=== PATIENT | male | born 1960 | race Caucasian/White ===

== ENCOUNTER 2022-01-25 10:00 | Outpatient (CLI) | payer BC, SELFPAY ==
[2022-01-25 13:48] LABS: Albumin* 4.6 g/dL (3.3-5.0)
[2022-01-25 13:49] LABS: Chloride* 105 mmol/L (96-114); Potassium* 4.6 mmol/L (3.6-5.1); Sodium* 139 mmol/L (135-149)
[2022-01-25 13:51] LABS: Alkaline Phosphatase* 90 U/L (40-150); Aspartate Amino Transferase* 30 U/L (12-35); Bilirubin Total* 1.2 mg/dL (0.1-1.5); Blood Urea Nitrogen* 20 mg/dL (7-30); Carbon Dioxide* 26 mmol/L (20-32); Cholesterol* 150 mg/dL (90-199); Estimated Glomerular Filt Rate 85 ml/min; Total Protein* 7.2 g/dL (6.0-8.3)
[2022-01-25 13:52] LABS: Alanine Aminotransferase* 35 U/L (4-50); Calcium* 9.7 mg/dL (8.4-10.6); Glucose* 100 mg/dL (60-115); HDL Cholesterol* 29 mg/dL (>=40); LDL Cholesterol Calculated 96 mg/dL (<100); Triglycerides* 126 mg/dL (40-149)
[2022-01-25 14:06] LABS: Creatinine Urine 149.9 mg/dL
[2022-01-25 14:11] LABS: Microalbumin Creatinine Ratio 0 mg/g (0-30); Microalbumin Urine 1 mg/dL
== END 2022-01-25 10:01 | disposition home or self-care (01) ==
PROVIDERS: PCP Physician Assistant Medical; Visit Provider Family Medicine
DX: E78.5 Hyperlipidemia, unspecified (principal); R03.0 Elevated blood-pressure reading, without diagnosis of hypertension; R53.83 Other fatigue
CPT/HCPCS: 80053; 80061; 82043; 82570; 84443

== ENCOUNTER 2022-01-26 08:18 | Day surgery (SDC) | payer BC, SELFPAY ==
[2022-01-26] VITALS (14 sets, daily range): BP systolic 79–159; BP diastolic 51–103; PULSE 71–96; RESP 16–18; TEMP 36.1–36.6; O2SAT 92–98; BMI 30.7
[2022-01-26] MEDS: LACTATED RINGERS 1000 ML 1,000 ML 100 ML IV (08:49)
[2022-01-26] MEDS: CEFAZOLIN 2 GM INJ IVP (09:45)
[2022-01-26] MEDS: BUPIVACAINE 0.25% 30 ML INJECTION (10:20)
--- NOTE | 2022-01-26 10:38 | W.ANESCHARGE ---
Anesthesia Charges Start Date/Time Anesthesia Start Date: 01/26/22 Anesthesia Start Time: 09:38 Stop Date/Time Anesthesia Stop Date: 01/26/22 Anesthesia Stop Time: 10:33 Summary Emergency: No
--- NOTE | 2022-01-26 10:47 | P.ORPRC_ITS ---
Procedure Note Date of procedure: 01/26/22 Procedure: SURGEON: Derek Carias MD ENVIRONMENTAL RESEARCH PROJECT MANAGER: CATARINA Maurice PREOPERATIVE DIAGNOSIS: Left knee medial meniscus tear, inflammation within the ACL origin, insertion and midportion of the ligament POSTOPERATIVE DIAGNOSIS: Left knee medial meniscus tear, inflammation within the ACL origin, insertion and midportion of the ligament NAME OF OPERATION: Left knee arthroscopic partial medial meniscectomy ANESTHESIA: Spinal ESTIMATED BLOOD LOSS: 0 mL COMPLICATIONS: None SPECIMENS: None DRAINS: None PREOPERATIVE ANTIBIOTICS: Ancef 2 gram INDICATIONS: The patient is a 61-year-old male with a history of left knee pain. MRI scan is consistent with a medial meniscus tear and inflammation surrounding the ACL. Despite appropriate nonoperative management, including activity modification, antiinflammatories, [id number] pain medication, bracing, physical therapy, and injections they continue to have pain and disability. Operative intervention was offered. The risks, benefits and expected outcomes were discussed in detail. These included but were not limited to: Infection, bleeding, injury to blood vessel or nerve, venous thromboembolism. All questions were answered to their satisfaction. PROCEDURE: Spinal anesthesia was administered. The patient was placed supine on the operating room table. The left lower extremity was prepped and draped in the usual sterile fashion. The limb was exsanguinated with the Brendon bandage. The pneumatic tourniquet was inflated to 300 mmHg. A standard anterolateral portal was established. The arthroscope was introduced. The working portal was established anteromedially. Diagnostic arthroscopy was performed with findings as follows: The suprapatellar pouch is normal. Articular surface on the patella is normal. Articular surface on the trochlea is normal. The medial gutter is normal. The medial compartment shows normal articular cartilage on the medial femoral condyle and medial tibial plateau. The medial meniscus shows degenerative fraying of the leading edge with some undersurface horizontal cleavage tearing of the posterior horn. The notch shows the ACL to be intact. There is no obvious cyst within the fibers of the ACL, nor its origin or insertion site. The bony attachment at the insertion appears normal. The lateral compartment shows normal articular cartilage on the lateral femoral condyle and lateral tibial plateau. The lateral meniscus is normal. The lateral gutter is normal. The posterior horn of the medial meniscus was debrided to a stable base using a combination of baskets and shaver through both portals. Arthroscopic instruments were removed, the portal sites were Steri-Stripped closed, the knee was infiltrated with 30 mL of 0.25% Marcaine without epinephrine. A dry dressing was applied, the tourniquet was released. Sponge and needle counts were correct x 2. The patient tolerated the procedure well. There were no apparent complications. They were carefully transferred to the hospital bed and taken to the postanesthesia care unit in satisfactory condition. PLAN: The patient will be discharged to home. They may weightbear as tolerates. Range of motion will be unrestricted. They will follow up in the office next week for a wound check.
--- NOTE | 2022-01-26 11:13 | W.ANESCHARGE ---
Anesthesia Charges Start Date/Time Anesthesia Start Date: 01/26/22 Anesthesia Start Time: 09:38 Stop Date/Time Anesthesia Stop Date: 01/26/22 Anesthesia Stop Time: 10:33 Summary Emergency: No
== END 2022-01-26 12:03 | disposition home or self-care (01) ==
PROVIDERS: PCP Physician Assistant Medical; Visit Provider Orthopaedic Surgery
PROC: (CPT 29870; principal; 2022-01-26 10:15)
DX: M23.222 Derangement of posterior horn of medial meniscus due to old tear or injury, left knee (principal)
CPT/HCPCS: 29881; 01400; J0690; J1100; J1885; J2250; J2400; J2405; J2704; J3010; J3490; J7120

== ENCOUNTER 2023-04-04 11:15 | Outpatient (CLI) | payer OTHER, SELFPAY | END 2023-04-04 11:16 | disposition home or self-care (01) | PROVIDERS: PCP Physician Assistant Medical; Visit Provider Family Medicine | DX: Z00.00 Encounter for general adult medical examination without abnormal findings (principal); E03.9 Hypothyroidism, unspecified; E78.5 Hyperlipidemia, unspecified; R03.0 Elevated blood-pressure reading, without diagnosis of hypertension; R73.03 Prediabetes; Z12.5 Encounter for screening for malignant neoplasm of prostate | CPT/HCPCS: 80053; 80061; 82043; 82570; 84153; 84443 ==

== ENCOUNTER 2023-05-02 09:23 | Outpatient (CLI) | payer OTHER, SELFPAY ==
--- NOTE | 2023-05-02 10:32 | W.ANESCHARGE ---
Anesthesia Charges Start Date/Time Anesthesia Start Date: 05/02/23 Anesthesia Start Time: 10:02 Stop Date/Time Anesthesia Stop Date: 05/02/23 Anesthesia Stop Time: 10:30
--- NOTE | 2023-05-02 11:00 | W.ANESCHARGE ---
Anesthesia Charges Start Date/Time Anesthesia Start Date: 05/02/23 Anesthesia Start Time: 10:02 Stop Date/Time Anesthesia Stop Date: 05/02/23 Anesthesia Stop Time: 10:30
== END 2023-05-02 09:24 | disposition home or self-care (01) ==
LOC: OP CLINIC 09:25
PROVIDERS: PCP Family Medicine; Visit Provider Internal Medicine
DX: Z12.11 Encounter for screening for malignant neoplasm of colon (principal); K63.5 Polyp of colon; K57.30 Diverticulosis of large intestine without perforation or abscess without bleeding
CPT/HCPCS: 00811; 45380; 88305; J2704